=== PATIENT | female | born 1990 | race African-American/Black ===

== ENCOUNTER 2016-07-31 13:51 | Emergency (ER) | payer MEDICAID ==
[~2016-07-31] VITALS: Ht 160 cm; Wt 75.4 kg
[2016-07-31] MEDS ORDERED: LIDOCAINE 1%, 20ML ONE (14:48)
[2016-07-31] MEDS ORDERED: LIDOCAINE 1%-EPI 1:100K, 20ML SQ ONE (15:00)
[2016-07-31 16:01] VITALS: BP 120/80
== END 2016-07-31 16:03 ==
LOC: ED 16:00
DX: L02.412 Cutaneous abscess of left axilla (principal); F17.200 Nicotine dependence, unspecified, uncomplicated
CPT/HCPCS: 10060

== ENCOUNTER 2016-08-02 07:40 | Emergency (ER) | payer MEDICAID ==
[~2016-08-02] VITALS: Ht 157.5 cm; Wt 78.0 kg
[2016-08-02 07:42] VITALS: BP 136/76
== END 2016-08-02 08:28 | disposition home or self-care (01) ==
LOC: ED 08:20
DX: L02.412 Cutaneous abscess of left axilla (principal)
CPT/HCPCS: 99282

== ENCOUNTER 2016-08-24 17:29 | Emergency (ER) | payer MEDICAID ==
[~2016-08-24] VITALS: Ht 160 cm; Wt 75.6 kg
[2016-08-24 17:37] VITALS: BP 120/77
== END 2016-08-24 19:09 | disposition home or self-care (01) ==
LOC: ED 19:07
DX: K02.9 Dental caries, unspecified (principal); F15.10 Other stimulant abuse, uncomplicated
CPT/HCPCS: 99283

== ENCOUNTER 2016-10-03 00:37 | Emergency (ER) | payer SELFPAY ==
[~2016-10-03] VITALS: Ht 160 cm; Wt 77.5 kg
[2016-10-03 00:38] VITALS: BP 125/84
[2016-10-03 01:22] LABS: BLOOD UREA NITROGEN 15 mg/dL (7-18)
[2016-10-03] MEDS ORDERED: AZITHROMYCIN 500 MG TABLET ONE (01:53)
[2016-10-03] MEDS ORDERED: CEFTRIAXONE 250 MG ONE (01:54)
[2016-10-03] MEDS ORDERED: CEFTRIAXONE 250 MG IM ONE (02:00)
[2016-10-03] MEDS ORDERED: AZITHROMYCIN 500 MG TABLET PO ONE (02:00)
== END 2016-10-03 02:18 | disposition home or self-care (01) ==
LOC: ED 02:10
DX: N30.90 Cystitis, unspecified without hematuria (principal); N76.0 Acute vaginitis
CPT/HCPCS: 36415; 80048; 81001; 82040; 84703; 85025; 87086; 87491; 87591; 96372; 99284; J0696

== ENCOUNTER 2016-11-07 12:09 | Emergency (ER) | payer MEDICAID ==
[~2016-11-07] VITALS: Ht 160 cm; Wt 74.5 kg
[2016-11-07] MEDS ORDERED: SODIUM CHLORIDE 0.9% 1,000ML IVBOLUS ONE (13:00)
[2016-11-07] MEDS ORDERED: CLINDAMYCIN PMX 600MG/50ML 50 ML IVPB ONE (13:00)
[2016-11-07] MEDS ORDERED: DIPHENHYDRAMINE 50 MG/ML, 1ML IVPush ONE (13:00)
[2016-11-07] MEDS ORDERED: FAMOTIDINE 20 MG/2 ML IVPush ONE (13:00)
[2016-11-07] MEDS ORDERED: FAMOTIDINE 20 MG/2 ML ONE (13:02)
[2016-11-07] MEDS ORDERED: DIPHENHYDRAMINE 50 MG/ML, 1ML ONE (13:02)
[2016-11-07] MEDS ORDERED: CLINDAMYCIN PMX 600MG/50ML 0 ML ONE (13:12)
[2016-11-07 13:16] LABS: HEMATOCRIT 39.1 % (34.6-47.8); HEMOGLOBIN 13.1 g/dL (11.7-16.4); WHITE BLOOD COUNT 12.9 x10^3/uL (3.4-10)
[2016-11-07] MEDS ORDERED: CEFTAROLINE 600 MG in SODIUM CHLORIDE 0.9% 100 ML IV ONE (13:30)
[2016-11-07] MEDS ORDERED: OMNIPAQUE 350 MG/ML, 75ML BOTTLE ONE (14:00)
[2016-11-07 15:54] VITALS: BP 100/53
== END 2016-11-07 15:56 | disposition home or self-care (01) ==
LOC: ED 15:03
DX: L03.213 Periorbital cellulitis (principal)
CPT/HCPCS: 36415; 70481; 85025; 96361; 96365; 96375; 99285; J0712; J1200; J7030; Q9967

== ENCOUNTER 2017-03-06 17:24 | Emergency (ER) | payer MEDICAID ==
[~2017-03-06] VITALS: Ht 160 cm; Wt 80.0 kg
[2017-03-06 17:31] VITALS: BP 116/77
[2017-03-06] MEDS ORDERED: DEXAMETHASONE 4 MG TABLET PO STA (18:56)
[2017-03-06] MEDS ORDERED: DEXAMETHASONE 4 MG TABLET ONE (19:06)
== END 2017-03-06 19:18 ==
LOC: ED 19:17
DX: J20.8 Acute bronchitis due to other specified organisms (principal); J00 Acute nasopharyngitis [common cold]; F17.210 Nicotine dependence, cigarettes, uncomplicated
CPT/HCPCS: 71020; 99284

== ENCOUNTER 2017-04-03 20:56 | Emergency (ER) | payer MEDICAID ==
[~2017-04-03] VITALS: Ht 160 cm; Wt 79.8 kg
[2017-04-03 22:19] VITALS: BP 121/76
== END 2017-04-03 22:21 | disposition home or self-care (01) ==
LOC: ED 21:53
DX: J45.909 Unspecified asthma, uncomplicated (principal); J20.8 Acute bronchitis due to other specified organisms; F17.210 Nicotine dependence, cigarettes, uncomplicated
CPT/HCPCS: 71046; 93005; 99284

== ENCOUNTER 2017-04-22 20:34 | Emergency (ER) | payer MEDICAID ==
[~2017-04-22] VITALS: Ht 160 cm; Wt 77.8 kg
[2017-04-22 20:37] VITALS: BP 118/77
== END 2017-04-22 21:38 | disposition home or self-care (01) ==
LOC: ED 21:09
DX: Z76.0 Encounter for issue of repeat prescription (principal); J45.909 Unspecified asthma, uncomplicated
CPT/HCPCS: 99283

== ENCOUNTER 2017-12-22 10:50 | Emergency (ER) | payer SELFPAY ==
[~2017-12-22] VITALS: Ht 160 cm; Wt 76.5 kg
[2017-12-22 11:05] VITALS: BP 122/77
== END 2017-12-22 12:30 | disposition home or self-care (01) ==
LOC: ED 12:19
DX: K02.9 Dental caries, unspecified (principal); F17.200 Nicotine dependence, unspecified, uncomplicated; J45.909 Unspecified asthma, uncomplicated
CPT/HCPCS: 99283; 99406

== ENCOUNTER 2018-05-19 07:13 | Emergency (ER) | payer SELFPAY ==
[~2018-05-19] VITALS: Ht 161.3 cm; Wt 72.7 kg
[2018-05-19 07:17] VITALS: BP 127/74
--- NOTE | 2018-05-19 08:43 | NUR ---
Patient given discharge instructions and they have confirmed that they understand the instructions. Patient ambulatory with steady gait.
== END 2018-05-19 08:45 | disposition home or self-care (01) ==
LOC: ED 08:12
DX: B34.9 Viral infection, unspecified (principal); J45.909 Unspecified asthma, uncomplicated
CPT/HCPCS: 71046; 99283

== ENCOUNTER 2018-07-14 22:54 | Emergency (ER) | payer SELFPAY ==
[~2018-07-14] VITALS: Ht 160 cm; Wt 72.0 kg
--- NOTE | 2018-07-14 23:07 | NUR ---
LOVE FISHER FROM HOME FOR C/O WITNESSED SEZIURE FOR APPROXIMATLY 2 MINUTES REPORTED BY BOYFRIEND. PT. WAS IN BED SLEEPING WHEN THIS OCCURED. NO HX OF SEZIURES IN THE PAST. PT. DENIES ANY ETOH OR DRUG USE. A&O TO SELF AND PLACE AT THIS TIME. VERY DROWSY. ALL MONITORS PLACED. WARM BLANKET PROVIDED. AWAITING PROVIDER EVAL. ALL SAFETY MEASURES OBSERVED.
--- NOTE | 2018-07-14 23:21 | NUR ---
SEZIURE PADS HAVE BEEN PLACED AND EKG WAS DONE AND PRESENTED TO ERMMaricruz.
--- NOTE | 2018-07-15 00:01 | NUR ---
PT. RESTING ON GURNEY WITH EYES CLOSED. WAKES TO VERBAL STIMULI. PT. DENIES NEEDS. LABS PENDING. CALL LIGHT IN REACH. ALL SAFETY MEASURES OBSERVED.
--- NOTE | 2018-07-15 00:14 | NUR ---
LAB AT BS COMPLETED BLOOD DRAW.
[2018-07-15 00:20] LABS: BASOPHILS # (AUTO) 0.04 x10^3/uL (0-0.1); BASOPHILS % (AUTO) 1 % (0-1); EOSINOPHILS # (AUTO) 0.08 x10^3/uL (0-0.4); EOSINOPHILS % (AUTO) 2 % (1-7); LYMPHOCYTES # (AUTO) 1.38 x10^3/uL (1-3.4); LYMPHOCYTES % (AUTO) 37 % (22-44); MD NO; MEAN CORPUSCULAR HEMOGLOBIN 32.2 pg (27.0-34.8); MEAN CORPUSCULAR HGB CONC 34.6 g/dL (32.4-35.8); MEAN CORPUSCULAR VOLUME 92.9 fL (80-100); MEAN PLATELET VOLUME 8.8 fL (7.4-10.4); MONOCYTES # (AUTO) 0.44 x10^3/uL (0.2-0.8); MONOCYTES % (AUTO) 12 % (2-9); NEUTROPHILS # (AUTO) 1.82 x10^3/uL (1.8-6.8); NEUTROPHILS % (AUTO) 49 % (42-75); PLATELET COUNT 277 x10^3/uL (130-400); RED BLOOD COUNT 4.28 x10^6/uL (3.82-5.3); RED CELL DISTRIBUTION WIDTH 13.4 % (9.6-15.2)
[2018-07-15 00:30] LABS: ALBUMIN 3.2 g/dL (3.4-5.0); ANION GAP 5 mmol/L (5-15); CALCIUM 7.6 mg/dL (8.5-10.1); CHLORIDE 112 mmol/L (98-107); CREATININE 0.64 mg/dL (0.55-1.02)
--- NOTE | 2018-07-15 00:58 | NUR ---
PT. RESTING ON GURNEY WITH NADN. PT. NOW A&O X 4 AND MORE ALERT. REPORTS FEELING GOOD AT THIS TIME. BOYFRIEND LYING IN BED WITH PT. PT. DENIES NEEDS. AWAITING PROVIDER RECHECK.
--- NOTE | 2018-07-15 01:45 | NUR ---
PT. AMBULATORY TO BR WITH STEADY GAIT ACCOMPANIED BY BOYFRIEND.
--- NOTE | 2018-07-15 02:20 | NUR ---
RETURNED FROM BREAK TO REASSUME CARE OF PT. AT THIS TIME.
--- NOTE | 2018-07-15 02:29 | NUR ---
ASSIST RN: PATIENT DISCHARGED WITH INSTRUCTION TO FOLLOW UP TO NEUROLOGY. VERBALIZED UNDERSTANDING.
[2018-07-15 02:31] VITALS: BP 98/67
== END 2018-07-15 02:33 | disposition home or self-care (01) ==
LOC: ED 23:31
DX: G40.409 Other generalized epilepsy and epileptic syndromes, not intractable, without status epilepticus (principal); R93.0 Abnormal findings on diagnostic imaging of skull and head, not elsewhere classified; R51 Headache
CPT/HCPCS: 36415; 70450; 80048; 82040; 84703; 85025; 93005; 99284

== ENCOUNTER 2019-05-05 08:38 | Emergency (ER) | payer SELFPAY ==
[~2019-05-05] VITALS: Ht 160 cm; Wt 78.3 kg
--- NOTE | 2019-05-05 08:52 | NUR ---
[employer] ASSEMBLER:PT AMBULATORY TO ROOM FROM LOBBY
--- NOTE | 2019-05-05 09:11 | NUR ---
PT PRESENTS TO ED STATING SHE SUSPECTS SHE HAD A SEIZURE IN HER SLEEP THIS AM. PT STATES SHE HAD HER FIRST SEIZURE APPROX 1 YR AGO AND HAS HAD 5-6 SEIZURES OVER THE LAST YEAR. PT WAS REFERRED TO NEUROLOGIST BUT HAS NOT FOLLOWED UP TO START ANTI-EPILEPTICS. PT STATES "THEY USUALLY HAPPEN WHEN I'M ASLEEP. I KNOW I HAVE THEM BECAUSE IT WAKES MY BOYFRIEND UP. TODAY IT DIDN'T WAKE HIM UP BUT I WOKE UP AND I HAD BIT MY CHEEK AND I WAS FEELING OFF." PT DENIES FALL OR INJURY. PT IS A&OX4, NEURO INTACT. ALL MONITORS IN PLACE. SEIZURE PRECAUTIONS IN PLACE. AWAITING MD AND ORDERS.
[2019-05-05 09:53] LABS: BASOPHILS # (AUTO) 0.01 x10^3/uL (0-0.1); BASOPHILS % (AUTO) 0 % (0-1); EOSINOPHILS # (AUTO) 0.08 x10^3/uL (0-0.4); EOSINOPHILS % (AUTO) 3 % (1-7); LYMPHOCYTES # (AUTO) 0.59 x10^3/uL (1-3.4); LYMPHOCYTES % (AUTO) 18 % (22-44); MD NO; MEAN CORPUSCULAR HEMOGLOBIN 32.1 pg (27.0-34.8); MEAN CORPUSCULAR VOLUME 94.4 fL (80-100); MONOCYTES # (AUTO) 0.42 x10^3/uL (0.2-0.8); MONOCYTES % (AUTO) 13 % (2-9); NEUTROPHILS # (AUTO) 2.23 x10^3/uL (1.8-6.8); NEUTROPHILS % (AUTO) 67 % (42-75); PLATELET COUNT 257 x10^3/uL (130-400); RED BLOOD COUNT 4.38 x10^6/uL (3.82-5.3)
[2019-05-05 10:05] LABS: ALBUMIN 3.3 g/dL (3.4-5.0); ANION GAP 5 mmol/L (5-15); CALCIUM 7.8 mg/dL (8.5-10.1); CHLORIDE 110 mmol/L (98-107)
[2019-05-05 10:10] LABS: CREATININE 0.82 mg/dL (0.55-1.02)
[2019-05-05 10:22] VITALS: BP 90/58
--- NOTE | 2019-05-05 10:22 | NUR ---
pt resting on gurney, a&ox4, speech clear, resps even and unlabored. nsr on city administrator with no ectopy. pt denies pain. pt denies any needs at this time. all results back, chart up for recheck, awaiting MD and dispo.
== END 2019-05-05 11:07 | disposition home or self-care (01) ==
LOC: ED 11:00
DX: G40.909 Epilepsy, unspecified, not intractable, without status epilepticus (principal); J45.909 Unspecified asthma, uncomplicated
CPT/HCPCS: 36415; 80048; 82040; 84703; 85025; 99283

== ENCOUNTER 2019-11-03 21:05 | Emergency (ER) | payer SELFPAY ==
[~2019-11-03] VITALS: Ht 160 cm; Wt 76.2 kg
[2019-11-03] MEDS ORDERED: HYDROcodone/APAP 5/325 TABLET ONE (21:29)
[2019-11-03] MEDS ORDERED: HYDROcodone/APAP 5/325 TABLET PO ONE (21:30)
--- NOTE | 2019-11-03 21:34 | NUR ---
PATIENT STATES HAVING DENATAL PAIN ON RIGHT SIDE OF FACE. STATES PAIN HAS BEEN KEEPING HER UP ALL NIGHT. MEDICATED FOR PAIN PER EMAR. ALL SAFETY MEASURES IN PLACE
[2019-11-03 21:59] VITALS: BP 130/89
== END 2019-11-03 22:09 | disposition home or self-care (01) ==
LOC: ED 21:48
DX: K08.89 Other specified disorders of teeth and supporting structures (principal); R00.0 Tachycardia, unspecified; J45.909 Unspecified asthma, uncomplicated; G40.909 Epilepsy, unspecified, not intractable, without status epilepticus
CPT/HCPCS: 99283